=== PATIENT | male | born 1940 | race African-American/Black ===

== ENCOUNTER 2016-12-06 12:34 | Inpatient (IN) | payer MEDICARE, OTHER ==
[~2016-12-06] VITALS: Ht 182.9 cm; Wt 74.8 kg
[~2016-12-06 12:34] MED LIST: AMLODIPINE BESY10 MG ORAL; ASCORBIC ACID500 M4 ORAL; ASPIRIN EC81 MG ORAL; CARVEDILOL25 MG ORAL; CEPHALEXIN250 MG ORAL; DIOVAN160 MG ORAL; GLUCOSAMIN-CHO1 EAC1 PO; LIPITOR80 MG ORAL; LYSINE1000 MG PO; METFORMIN HCL500 M1 ORAL; MICROZIDE12.5 M1 PO; MULTI VITAMIN1 EACH ORAL; NEPHROVITE1 TAB ORAL; NORCO 5-325 TA1 EACH ORAL; PLAVIX75 MG ORAL; PROBIOTIC1 EAC5 PO; UBIQUINOL100 MG PO; VENLAFAXINE HC100 MG ORAL; VITAMIN D32000 UNI3 PO; VITAMIN E400 INTLU ORAL
[2016-12-06] MEDS ORDERED: Sodium Chloride 500ML 500 ML IV ONE (12:41)
--- NOTE | 2016-12-06 12:46 | Emergency Room Report ---
History of Present Illness General Chief Complaint: Altered Level of Consciousness Source: EMS Present Illness HPI Patient was brought in by paramedics for reports of increased confusion Patient is easily GCS 15 This report is given by paramedics Over the past several hours the patient has been less talkative does not appear to be his usual self and presents to the ER Patient himself Reports that he has been feeling weak and lethargic there was no reports of vomiting or diarrhea unknown regarding fever unknown regarding change in medications Denies any dysuria frequency denies any focal weakness Allergies: Coded Allergies: SHELLFISH DERIVED (Verified Allergy, Intermediate, Shortness of Breath, ) Patient History Past Medical History: see triage record Pertinent Family History: none Reviewed Nursing Documentation: PMH: Agreed, PSxH: Agreed Nursing Documentation-PMH Past Medical History: No History, Except For Hx Cardiac Problems: Yes - STENTS Hx Hypertension: Yes Hx Pacemaker: No Hx Asthma: Yes Hx COPD: Yes Hx Diabetes: Yes Hx Cancer: No Hx Gastrointestinal Problems: Yes Hx Neurological Problems: Yes Hx Cerebrovascular Accident: Yes Hx Seizures: No Review of Systems All Other Systems: negative except mentioned in HPI Physical Exam Vital Signs Date Time Temp Pulse Resp B/P (MAP) Pulse Ox O2 Delivery O2 Flow Rate FiO2 12/06/16 12:18 102.4 106 20 122/68 100 Room Air Sp02 EP Interpretation: reviewed, normal General Appearance: no apparent distress Head: normocephalic, atraumatic Eyes: bilateral eye PERRL, bilateral eye EOMI ENT: hearing grossly normal, normal pharynx Neck: full range of motion, supple Respiratory: lungs clear, normal breath sounds Cardiovascular #1: regular rate, rhythm, no edema Gastrointestinal: non tender, soft Musculoskeletal: other - Moves both upper extremities and lower extremities without focal deficit, appears somewhat slow to respond however Neurologic: normal inspection, alert, oriented x3, responsive Skin: normal color, no rash Lymphatic: no adenopathy Medical Decision Making Diagnostic Impression: Primary Impression: Sepsis Additional Impressions: Elevated troponin I level Hyponatremia UTI (urinary tract infection) ER Course Patient is a fairly complex patient with multiple differential to consideration including but not limited to cardiac cardiopulmonary and vascular emergencies Patient has become more awake and appropriate throughout his stay He now reports recent prostate procedure He also asked that his sodium was low Mentioning that he has had confusion with low sodium Patient was given normal saline for this and admitted for further care Labs Test 12/06/16 12:50 12/06/16 13:50 12/07/16 01:40 White Blood Count 6.4 K/UL (4.8-10.8) Red Blood Count 3.36 M/UL (4.70-6.10) Hemoglobin 11.0 G/DL (14.2-18.0) Hematocrit 33.4 % (42.0-52.0) Mean Corpuscular Volume 99 FL (80-99) Mean Corpuscular Hemoglobin 32.7 PG (27.0-31.0) Mean Corpuscular Hemoglobin Concent 32.9 G/DL (32.0-36.0) Red Cell Distribution Width 10.9 % (11.6-14.8) Platelet Count 162 K/UL (150-450) Mean Platelet Volume 7.2 FL (6.5-10.1) Neutrophils (%) (Auto) % (45.0-75.0) Lymphocytes (%) (Auto) % (20.0-45.0) Monocytes (%) (Auto) % (1.0-10.0) Eosinophils (%) (Auto) % (0.0-3.0) Basophils (%) (Auto) % (0.0-2.0) Differential Total Cells Counted 100 Neutrophils % (Manual) 91 % (45-75) Lymphocytes % (Manual) 2 % (20-45) Monocytes % (Manual) 1 % (1-10) Eosinophils % (Manual) 0 % (0-3) Basophils % (Manual) 0 % (0-2) Band Neutrophils 6 % (0-8) Platelet Estimate Adequate Platelet Morphology Normal Sodium Level 122 MMOL/L (136-145) Potassium Level 4.5 MMOL/L (3.5-5.1) Chloride Level 90 MMOL/L (98-107) Carbon Dioxide Level 23 MMOL/L (21-32) Anion Gap 9 mmol/L (5-15) Blood Urea Nitrogen 20 mg/dL (7-18) Creatinine 1.1 MG/DL (0.55-1.30) Estimat Glomerular Filtration Rate mL/min (>60) Glucose Level 224 MG/DL (74-106) Calcium Level 8.4 MG/DL (8.5-10.1) Total Bilirubin 0.9 MG/DL (0.2-1.0) Aspartate Amino Transf (AST/SGOT) 20 U/L (15-37) Alanine Aminotransferase (ALT/SGPT) 30 U/L (12-78) Alkaline Phosphatase 129 U/L (46-116) Total Creatine Kinase 72 U/L (26-308) Creatine Kinase MB < 0.5 NG/ML (0.0-3.6) Creatine Kinase MB Relative Index 0.6 Troponin I 0.072 ng/mL (0.000-0.056) Total Protein 7.3 G/DL (6.4-8.2) Albumin 3.4 G/DL (3.4-5.0) Globulin 3.9 g/dL Albumin/Globulin Ratio 0.9 (1.0-2.7) Lipase 106 U/L (73-393) Urine Color Red Urine Appearance Cloudy Urine pH 7 (4.5-8.0) Urine Specific [place] 1.010 (1.005-1.035) Urine Protein 3+ (NEGATIVE) Urine Glucose (UA) Negative (NEGATIVE) Urine Ketones Negative (NEGATIVE) Urine Occult Blood 5+ (NEGATIVE) Urine Nitrite Negative (NEGATIVE) Urine Bilirubin Negative (NEGATIVE) Urine Urobilinogen Normal MG/DL (0.0-1.0) Urine Leukocyte Esterase 3+ (NEGATIVE) Urine RBC Tntc /HPF (0 - 0) Urine WBC Tntc /HPF (0 - 0) Urine Squamous Epithelial Cells Occasional /LPF Urine Bacteria Many /HPF (NONE) Triglycerides Level 20 MG/DL (0-200) Cholesterol Level 81 MG/DL (< 200) LDL Cholesterol 25 mg/dL (<100) HDL Cholesterol 57 MG/DL (40-60) Cholesterol/HDL Ratio 1.4 (3.3-4.4) Rhythm Strip Diag. Results EP Interpretation: yes Rate: 88 Rhythm: NSR, no PVC's, no ectopy Chest X-Ray Diagnostic Results Chest X-Ray Diagnostic Results : Chest X-Ray Ordered: Yes # of Views/Limited/Complete: 1 View Indication: Chest Pain EP Interpretation: Yes Interpretation: no consolidation, no effusion, no pneumothorax Impression: No acute disease Electronically Signed by: Amanda Waldrop, DO CT/MRI/US Diagnostic Results CT/MRI/US Diagnostic Results : Impression CT head no acute disease Last Vital Signs Date Time Temp Pulse Resp B/P (MAP) Pulse Ox O2 Delivery O2 Flow Rate FiO2 12/06/16 12:18 102.4 106 20 122/68 100 Room Air Status: improved Disposition: ADMITTED INPATIENT Condition: Serious AMANDA WALDROP D.O. Dec 06, 2016 12:46
[2016-12-06 12:50] VITALS: BP 104/61
[2016-12-06 13:12] LABS: MEAN CORPUSCULAR HEMOGLOBIN 32.7 PG (27.0-31.0); MEAN CORPUSCULAR HGB CONC 32.9 G/DL (32.0-36.0); MEAN CORPUSCULAR VOLUME 99 FL (80-99); MEAN PLATELET VOLUME 7.2 FL (6.5-10.1); PLATELET COUNT 162 K/UL (150-450); RED BLOOD COUNT 3.36 M/UL (4.70-6.10); RED CELL DISTRIBUTION WIDTH 10.9 % (11.6-14.8); WHITE BLOOD COUNT 6.4 K/UL (4.8-10.8)
[2016-12-06 13:28] LABS: BAND NEUTROPHILS % (MANUAL) 6 % (0-8); BASOPHILS % (MANUAL) 0 % (0-2); EOSINOPHILS % (MANUAL) 0 % (0-3); LYMPHOCYTES % (MANUAL) 2 % (20-45); NEUTROPHILS % (MANUAL) 91 % (45-75); PLATELET ESTIMATE ADEQUATE; PLATELET MORPHOLOGY NORMAL; TOTAL CELLS COUNTED 100
--- NOTE | 2016-12-06 13:29 | Diagnostic Imaging Report ---
Indication: Altered mental status Technique: Contiguous 5 mm thick transaxial imaging of the head obtained in a Siemens Sensation [address] scanner. Soft tissue and bone windows generated. Total Dose length Product (DLP): [address] Dose Index Volume (CTDIvol): 70.38, 0.15 mGy Comparison: 07/01/14 Findings: There is mild prominence of the ventricles, basal cisterns, and cerebral sulci consistent with atrophy. Mild, nonspecific, white matter hypoattenuation is noted throughout the brain consistent with chronic small vessel disease. There is no midline shift, edema, acute hemorrhage, mass effect, or abnormal extra-axial fluid collections. Bones and extra osseous soft tissues are unremarkable. Impression: No acute intracranial bleed, mass effect or edema. Mild atrophy of the brain. Nonspecific white matter hypoattenuation probably due to chronic small vessel disease. The CT scanner at [facility] is accredited by the [employer] and the scans are performed using dose optimization techniques as appropriate to a performed exam including Automatic Exposure control.
[2016-12-06] MEDS ORDERED: LIPITOR80 MG ORAL (13:31)
[2016-12-06] MEDS ORDERED: AMLODIPINE BESY10 MG ORAL (13:32)
[2016-12-06 13:46] LABS: ALANINE AMINOTRANSFERASE 30 U/L (12-78); ALBUMIN/GLOBULIN RATIO 0.9 (1.0-2.7); ANION GAP 9 mmol/L (5-15); ASPARTATE AMINO TRANSFERASE 20 U/L (15-37); CALCIUM 8.4 MG/DL (8.5-10.1); CARBON DIOXIDE 23 MMOL/L (21-32); CHLORIDE 90 MMOL/L (98-107); CKMB < 0.5 NG/ML (0.0-3.6); CREATININE 1.1 MG/DL (0.55-1.30); LIPASE 106 U/L (73-393); POTASSIUM 4.5 MMOL/L (3.5-5.1); SODIUM 122 MMOL/L (136-145); TOTAL PROTEIN 7.3 G/DL (6.4-8.2)
[2016-12-06] MEDS ORDERED: cefTRIAXone 1 GM in NS 55 ML IVPB ONE (14:15)
[2016-12-06 14:19] LABS: APPEARANCE,URINE CLOUDY; KETONES,URINE NEGATIVE (NEGATIVE); LEUKOCYTE ESTERASE ,URINE 3+ (NEGATIVE); NITRITE,URINE NEGATIVE (NEGATIVE); PH,URINE 7 (4.5-8.0); PROTEIN,URINE 3+ (NEGATIVE); UROBILINOGEN,URINE NORMAL MG/DL (0.0-1.0)
--- NOTE | 2016-12-06 14:22 | Diagnostic Imaging Report ---
Indication: Dyspnea Comparison: 5:30 A single view chest radiograph was obtained. Findings: No definite infiltrate or pulmonary vascular congestion identified. Right hilar calcification noted. The heart is enlarged. The aorta is mildly enlarged consistent with atherosclerotic vascular disease. The bones are osteopenic. Impression: No acute disease
[2016-12-06 14:30] VITALS: BP 122/60
[2016-12-06 14:40] LABS: BACTERIA,URINE MANY /HPF; RBC,URINE TNTC /HPF (0 - 0); SQUAMOUS EPITHELIAL CELL,UR OCCASIONAL /LPF (NONE/OCC); WBC,URINE TNTC /HPF (0 - 0)
[2016-12-06] MEDS ORDERED: FLUTICASONE PRO16 G1 NASAL (15:12)
[2016-12-06] MEDS ORDERED: LEVITRA20 MG ORAL (15:12)
[2016-12-06] MEDS ORDERED: METHYLCOBALAMIN1 GM MC (15:12)
[2016-12-06] MEDS ORDERED: DOCUSATE SODIU100 MG ORAL (15:12)
[2016-12-06] MEDS ORDERED: CLOPIDOGREL75 MG ORAL (15:12)
[2016-12-06] MEDS ORDERED: DIAZEPAM5 MG ORAL (15:12)
[2016-12-06] MEDS ORDERED: FOLIC ACID1 MG ORAL (15:12)
[2016-12-06] MEDS ORDERED: COENZYME Q-1030 MG PO (15:12)
[2016-12-06] MEDS ORDERED: MAGNESIUM OXID500 M2 PO (15:12)
[2016-12-06] MEDS ORDERED: FLUZONE HI180 MCG/08 IM (15:12)
[2016-12-06 16:30] VITALS: BP 108/47
[2016-12-06] MEDS ORDERED: Docusate 100mg cap ORAL ONE (17:45)
[2016-12-06] MEDS: D5NS 1,000 ML IV SCH (18:47)
[2016-12-06] MEDS ORDERED: Miralax 17gm pkt ORAL PRN (19:15)
[2016-12-06] MEDS ORDERED: Norco 5mg/325mg tab ORAL PRN (19:15)
[2016-12-06] MEDS ORDERED: Nitroglycerin Subl 0.4mg tab SL PRN (19:15)
[2016-12-06 20:00] VITALS: BP 133/65
[2016-12-06 20:30] VITALS: BP 108/47
--- NOTE | 2016-12-06 20:45 | Consultation ---
DATE OF CONSULTATION: 12/06/2016 NEPHROLOGY CONSULTATION REFERRING PHYSICIAN: Clyde Nelson M.D. REASON FOR CONSULTATION: Hyponatremia, probable urinary tract infection. HISTORY OF PRESENT ILLNESS: The patient has a sodium of 122 today. He states he has had sort of chronic hyponatremia and has had this in the past, history is significant for BPH and prior prostatectomy in March 2014 and he had a recent procedure at [facility] with the radiofrequency prostatectomy last Monday and the Perez was removed on Monday which is 12/05/2016. He voided well in the doctor's office and was doing well. However this morning, he said he woke up and was somewhat disoriented and had a fever of 101. In the emergency room, he has pyuria. Troponin was 0.072. Sodium of 122. History is significant for coronary artery stenting apparently in March 2014. He also had hospitalization at [place] in June of 2014 from severe bleeding of the prostate while he was on Plavix. The patient has a history of hepatitis C and treatment with interferon in the past with apparently a poor tolerance and subsequently more recent treatment with two-drug regimen for hepatitis C. He has been on hydrochlorothiazide for a long time for hypertension as he has been told by his physician that this medication was essential to control his blood pressure. CURRENT MEDICATIONS: Listed on the computer include [place], cephalexin, amlodipine, ascorbic acid, atorvastatin Nephro-Sweta, carvedilol, metformin, valsartan, lysine, ubiquinol, hydrochlorothiazide, vitamin D3, glucosamine chondroitin, multivitamins, lactobacillus, , vitamin E, atorvastatin. ALLERGIES: To shellfish. HABITS: He is a cigarette smoker quit in 1979, alcohol quit in 1989, and he used some drugs . SOCIAL HISTORY: He worked in management and academic psychology. SYSTEM REVIEW: HEENT: Vision and hearing is good. ENDOCRINE: History of adult onset diabetes. No known thyroid disease. PULMONARY: No asthma, TB, or chronic cough. CARDIAC: History of prior stenting. No recent angina. No arrhythmias or congestive heart failure. GASTROINTESTINAL: No definite ulcers or GI bleeding. GENITOURINARY: History of some incomplete bladder emptying and prostatectomy as above. NEUROLOGIC: History of altered mental status related to hyponatremia in the past. PSYCHIATRIC: History of depression. PHYSICAL EXAMINATION: GENERAL: The patient is alert and oriented man, lying in the emergency room in no acute distress. VITAL SIGNS: His temperature was 102.4, has fallen to 98.3, pulse 86, respirations 22, blood pressure 108/47. HEENT: Sclerae are nonicteric. Ocular motions intact in all directions. Oral mucosa moist. NECK: No adenopathy. LUNGS: Clear. HEART: Regular rhythm. No murmur. ABDOMEN: Soft without organomegaly or masses. EXTREMITIES: No edema, cyanosis, or clubbing. NEUROLOGIC: He is alert and oriented. No focal findings. IMPRESSION: The patient has hyponatremia most likely secondary to hydrochlorothiazide and free water intake, less likely it is a contribution of liver disease from hepatitis C or syndrome of inappropriate antidiuretic hormone secretion alone. He also has fever, chills, and pyuria and likely iatrogenic urinary tract infection. PLAN: The patient be put on broad-spectrum antibiotics for his urinary tract infection. Hydrochlorothiazide will be stopped and we will give him some 3% saline and hopefully his sodium will correct. His mental status is already better. Other agents can be used for his hypertension and this can be monitored closely. Kevin Olivo M.D. DR: Seda JOB#: [id number] CC:
[2016-12-06] MEDS ORDERED: NaCl 3% 500ml 250 ML IV ONE (21:00)
[2016-12-06] MEDS: Docusate 100mg cap ORAL SCH (21:08)
[2016-12-06] MEDS: Atorvastatin 80mg tab ORAL SCH (21:08)
[2016-12-06] MEDS: Carvedilol 25mg Tab ORAL SCH (21:09)
[2016-12-06] MEDS: Heparin 5000 units/ml inj SUBQ SCH (21:12)
[2016-12-06] MEDS: Zosyn 3.375gm/50ml Premix 50 ML IVPB SCH (23:00)
[2016-12-07] VITALS: BP 120/55
[2016-12-07 02:27] LABS: CHOLESTEROL 81 MG/DL (< 200); CHOLESTEROL/HDL RATIO 1.4 (3.3-4.4)
[2016-12-07 04:00] VITALS: BP 106/53
[2016-12-07] MEDS: D5NS 1,000 ML IV SCH ×2 (05:12→15:00)
[2016-12-07] MEDS: Zosyn 3.375gm/50ml Premix 50 ML IVPB SCH ×3 (05:13→22:40)
[2016-12-07 08:00] VITALS: BP 118/85
[2016-12-07] MEDS: Losartan 50mg tab ORAL SCH (09:00)
[2016-12-07] MEDS: Carvedilol 25mg Tab ORAL SCH ×2 (09:00→21:13)
[2016-12-07] MEDS ORDERED: Venlafaxine XR 150mg cap ORAL SCH (09:00)
[2016-12-07] MEDS: Flonase Nasal Inhaler 16gm NASAL SCH (11:13)
[2016-12-07] MEDS: metFORMIN 500mg tab ORAL SCH ×2 (11:14→18:07)
[2016-12-07] MEDS: Ascorbic Acid 500mg tab ORAL SCH (11:14)
[2016-12-07] MEDS: Docusate 100mg cap ORAL SCH ×2 (11:14→21:12)
[2016-12-07] MEDS: Heparin 5000 units/ml inj SUBQ SCH ×2 (11:16→21:16)
[2016-12-07 12:00] VITALS: BP 139/55
[2016-12-07] MEDS ORDERED: cefTRIAXone 1gm/D5W 55ml IVPB SCH ×2 (14:00)
[2016-12-07] MEDS: Venlafaxine XR 75mg cap ORAL SCH (14:10)
--- NOTE | 2016-12-07 14:27 | Nephrology Progress Note ---
Assessment/Plan Problem List: (1) Pyelonephritis (2) Hypotension (3) Hyponatremia (4) BPH (benign prostatic hypertrophy) with urinary retention (5) CAD (coronary artery disease) (6) Encephalopathy Plan avoid hctz, update lab, kitty Subjective Constitutional: Reports: weakness HEENT: Reports: no symptoms Genitourinary: Reports: frequency Neurologic/Psychiatric: Reports: no symptoms Objective Objective Last 24 Hour Vital Signs Date Time Temp Pulse Resp B/P (MAP) Pulse Ox O2 Delivery O2 Flow Rate FiO2 12/07/16 09:00 106/53 12/07/16 09:00 82 106/53 12/07/16 09:00 82 106/53 12/07/16 08:00 97.5 72 20 118/85 100 Room Air 12/07/16 08:00 87 12/07/16 04:00 82 12/07/16 04:00 100.9 86 20 106/53 94 Room Air 12/07/16 02:21 100.4 12/07/16 00:00 101.8 94 20 120/55 96 Room Air 12/06/16 21:09 88 133/65 12/06/16 20:30 98.3 86 19 108/47 99 Room Air 89 12/06/16 20:28 89 19 108/47 99 Room Air 12/06/16 20:00 97.9 89 20 133/65 95 Room Air 12/06/16 16:30 86 22 108/47 98 Room Air 12/06/16 14:30 90 24 122/60 97 Room Air Laboratory Tests 12/07/16 01:40: Triglycerides Level 20, Cholesterol Level 81, LDL Cholesterol 25, HDL Cholesterol 57, Cholesterol/HDL Ratio 1.4L Height (Feet): 6 Height (Inches): 0.00 Weight (Pounds): 165 General Appearance: no apparent distress, alert EENT: normal ENT inspection Neck: non-tender, normal alignment Cardiovascular: normal rate Respiratory/Chest: lungs clear, normal breath sounds Abdomen: soft, no organomegaly Extremities: other - no edema 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
[2016-12-07 15:01] LABS: MEAN CORPUSCULAR HEMOGLOBIN 34.2 PG (27.0-31.0); MEAN CORPUSCULAR HGB CONC 33.3 G/DL (32.0-36.0); MEAN CORPUSCULAR VOLUME 103 FL (80-99); PLATELET COUNT 154 K/UL (150-450); RED BLOOD COUNT 3.32 M/UL (4.70-6.10); WHITE BLOOD COUNT 9.6 K/UL (4.8-10.8)
--- NOTE | 2016-12-07 15:16 | Cardiology Report ---
APPROVED REPORT EKG Measurement Heart [id number] Normal sinus rhythm Normal ECG
[2016-12-07 15:33] LABS: ALANINE AMINOTRANSFERASE 34 U/L (12-78); ALBUMIN/GLOBULIN RATIO 0.8 (1.0-2.7); ANION GAP 8 mmol/L (5-15); ASPARTATE AMINO TRANSFERASE 28 U/L (15-37); CALCIUM 8.5 MG/DL (8.5-10.1); CARBON DIOXIDE 24 MMOL/L (21-32); CHLORIDE 97 MMOL/L (98-107); POTASSIUM 4.2 MMOL/L (3.5-5.1); SODIUM 129 MMOL/L (136-145); THYROID STIMULATING HORMONE 1.062 uiU/mL (0.360-3.740); TOTAL PROTEIN 7.4 G/DL (6.4-8.2)
[2016-12-07 16:00] VITALS: BP 101/51
--- NOTE | 2016-12-07 16:34 | History & Physical ---
History and Physical History & Physicial HISTORY OF PRESENT ILLNESS: This 76-year-old man came to the hospital because of fever and chills with some confusion. He was found to have a UTI and low Na and admission was arranged. He reports past problems with low Na and is taking HCTZ. He had a recent laser TURP. PAST MEDICAL HISTORY: He has had 2 stents in the LAD at [facility]. He had a small stroke with little residual. He has hypertension and prostatic hypertrophy. He has had several prostate biopsies because his PSA was elevated as high as 25 or so, but the biopsies were negative. He had hepatitis C treated recently and cured. He has hyperlipidemia. He is diabetic, controlled on diet and oral medication. Depression is controlled. ALLERGIES: Shellfish. MEDICATIONS: reviewed REVIEW OF SYSTEMS: Otherwise unremarkable. PHYSICAL EXAMINATION: GENERAL: The patient is alert, responds appropriately, very pleasant gentleman. VITAL SIGNS: Blood pressure is 130/66. The other vital signs are normal. He has no fever. HEAD: Normocephalic. NECK: Has no jugular venous distention. Carotids are 2+. CHEST: Clear. CARDIOVASCULAR: Cardiac rhythm is regular without murmur or gallop. ABDOMEN: Soft and slightly distended. It seems there may be a fluid wave. The liver and spleen are not palpable. There is no mass. GENITALIA: Has a Perez catheter draining pink to red urine. EXTREMITIES: Have no edema. There is no clubbing or cyanosis and no signs of phlebitis. IMPRESSION: 1. UTI, s/p laser TURP 2. Hyponatremia 3. DM. 4. Hypertension. 5. Coronary artery disease status post angioplasty and stent x2 in the LAD. 6. Hyperlipidemia. 7. Status post treatment for hepatitis C. 8. Benign prostatic hypertrophy with elevated PSA. PLAN: The patient has been seen by nephrology. Hypertonic saline was given. Antibiotics were given. DC home when afebrile. GORDON SCALES Dec 07, 2016 16:34
[2016-12-07 17:28] LABS: BAND NEUTROPHILS % (MANUAL) 2 % (0-8); LYMPHOCYTES % (MANUAL) 7 % (20-45); NEUTROPHILS % (MANUAL) 88 % (45-75); TOTAL CELLS COUNTED 100
[2016-12-07 17:29] LABS: ANISOCYTOSIS 1+; BASOPHILS % (MANUAL) 0 % (0-2); EOSINOPHILS % (MANUAL) 0 % (0-3); HYPOCHROMASIA 1+; PLATELET ESTIMATE ADEQUATE; PLATELET MORPHOLOGY NORMAL
[2016-12-07 20:00] VITALS: BP 151/67
[2016-12-07] MEDS: Atorvastatin 80mg tab ORAL SCH (21:12)
[2016-12-07] MEDS ORDERED: NovoLOG Insulin Flexpen SUBQ ONE (23:00)
[2016-12-08] VITALS: BP_SYST 127; BP_SYST 54; BP_DIAS 54
[2016-12-08 04:00] VITALS: BP 117/58
[2016-12-08] MEDS: Zosyn 3.375gm/50ml Premix 50 ML IVPB SCH ×2 (05:42→14:01)
[2016-12-08 07:58] LABS: BASOPHILS % (AUTO) 0.4 % (0.0-2.0); EOSINOPHILS % (AUTO) 1.2 % (0.0-3.0); LYMPHOCYTES % (AUTO) 11.4 % (20.0-45.0); MEAN CORPUSCULAR HEMOGLOBIN 34.4 PG (27.0-31.0); MEAN CORPUSCULAR HGB CONC 33.9 G/DL (32.0-36.0); MEAN CORPUSCULAR VOLUME 101 FL (80-99); MEAN PLATELET VOLUME 7.9 FL (6.5-10.1); MONOCYTES % (AUTO) 11.2 % (1.0-10.0); NEUTROPHILS % (AUTO) 75.8 % (45.0-75.0); PLATELET COUNT 134 K/UL (150-450); RED BLOOD COUNT 3.05 M/UL (4.70-6.10); RED CELL DISTRIBUTION WIDTH 10.8 % (11.6-14.8); WHITE BLOOD COUNT 8.6 K/UL (4.8-10.8)
[2016-12-08 08:00] VITALS: BP 135/64
[2016-12-08 08:34] LABS: ALANINE AMINOTRANSFERASE 29 U/L (12-78); ALBUMIN/GLOBULIN RATIO 0.7 (1.0-2.7); ANION GAP 8 mmol/L (5-15); ASPARTATE AMINO TRANSFERASE 22 U/L (15-37); CALCIUM 8.6 MG/DL (8.5-10.1); CARBON DIOXIDE 25 MMOL/L (21-32); CHLORIDE 99 MMOL/L (98-107); CREATININE 0.8 MG/DL (0.55-1.30); POTASSIUM 4.1 MMOL/L (3.5-5.1); SODIUM 131 MMOL/L (136-145); THYROID STIMULATING HORMONE 1.089 uiU/mL (0.360-3.740); TOTAL PROTEIN 6.8 G/DL (6.4-8.2)
[2016-12-08] MEDS: metFORMIN 500mg tab ORAL SCH (09:55)
[2016-12-08] MEDS: Docusate 100mg cap ORAL SCH (09:55)
[2016-12-08] MEDS: Losartan 50mg tab ORAL SCH (09:56)
[2016-12-08] MEDS: Ascorbic Acid 500mg tab ORAL SCH (09:56)
[2016-12-08 09:57] VITALS: BP 135/64
[2016-12-08] MEDS: Carvedilol 25mg Tab ORAL SCH (09:57)
[2016-12-08] MEDS: Venlafaxine XR 75mg cap ORAL SCH (09:58)
[2016-12-08] MEDS: Flonase Nasal Inhaler 16gm NASAL SCH (10:06)
[2016-12-08] MEDS ORDERED: Heparin 5000 units/ml inj SUBQ SCH ×2 (10:45→21:00)
[2016-12-08] MEDS ORDERED: Aspirin Baby 81mg ORAL SCH (12:00)
[2016-12-08] MEDS ORDERED: Aspirin Baby 81mg NG SCH (12:00)
--- NOTE | 2016-12-08 14:57 | Nephrology Progress Note ---
Assessment/Plan Problem List: (1) Pyelonephritis (2) Hypotension (3) Hyponatremia (4) BPH (benign prostatic hypertrophy) with urinary retention (5) CAD (coronary artery disease) (6) Encephalopathy (7) Hyperglycemia Plan avoid hctz, update lab, zosyn changed to cefzolin, oral agents for aodm + SS insulin Subjective Constitutional: Reports: no symptoms HEENT: Reports: no symptoms Genitourinary: Reports: no symptoms Neurologic/Psychiatric: Reports: no symptoms Objective Objective Last 24 Hour Vital Signs Date Time Temp Pulse Resp B/P (MAP) Pulse Ox O2 Delivery O2 Flow Rate FiO2 12/08/16 09:57 73 135/64 12/08/16 09:56 135/64 12/08/16 08:00 98.1 73 19 135/64 97 Room Air 12/08/16 08:00 77 12/08/16 04:00 79 12/08/16 04:00 97.9 73 20 117/58 96 Room Air 12/08/16 00:00 81 12/08/16 00:00 98.2 80 22 127/54 94 Room Air 12/07/16 21:13 82 151/67 12/07/16 20:00 99.5 89 20 151/67 96 Room Air 89 12/07/16 20:00 90 12/07/16 16:00 88 12/07/16 16:00 97.5 83 20 101/51 96 Room Air Intake and Output 12/08/16 12/09/16 19:00 07:00 Intake Total 400 ml Balance 400 ml Intake Oral 400 ml # Voids 1 # Bowel Movements 1 Laboratory Tests 12/08/16 06:30: White Blood Count 8.6, Red Blood Count 3.05L, Hemoglobin 10.5L, Hematocrit 30.9L , Mean Corpuscular Volume 101H, Mean Corpuscular Hemoglobin 34.4H, Mean Corpuscular Hemoglobin Concent 33.9, Red Cell Distribution Width 10.8L, Platelet Count 134L, Mean Platelet Volume 7.9, Neutrophils (%) (Auto) 75.8H, Lymphocytes (%) (Auto) 11.4L, Monocytes (%) (Auto) 11.2H, Eosinophils (%) (Auto ) 1.2, Basophils (%) (Auto) 0.4, Sodium Level 131L, Potassium Level 4.1, Chloride Level 99, Carbon Dioxide Level 25, Anion Gap 8, Blood Urea Nitrogen 10 , Creatinine 0.8, Estimat Glomerular Filtration Rate , Glucose Level 193#H, Calcium Level 8.6, Total Bilirubin 0.9, Aspartate Amino Transf (AST/SGOT) 22, Alanine Aminotransferase (ALT/SGPT) 29, Alkaline Phosphatase 101, Total Protein 6.8, Albumin 2.8L, Globulin 4.0, Albumin/Globulin Ratio 0.7L, Thyroid Stimulating Hormone (TSH) 1.089 Height (Feet): 6 Height (Inches): 0.00 Weight (Pounds): 165 General Appearance: no apparent distress, alert EENT: normal ENT inspection Neck: non-tender Cardiovascular: normal rate Respiratory/Chest: lungs clear Abdomen: non tender, soft Extremities: non-tender Neurologic: crt II-XII grossly normal IKER TUBBS Dec 08, 2016 14:57
[2016-12-08] MEDS ORDERED: HYDRALAZINE HCL25 M1 ORAL (16:08)
[2016-12-08] MEDS ORDERED: CEPHALEXIN500 M1 ORAL (16:08)
[2016-12-08] MEDS ORDERED: GlipiZIDE 10mg tab ORAL SCH (16:30)
[2016-12-08] MEDS ORDERED: NovoLOG Insulin Flexpen SUBQ SCH (16:30)
--- NOTE | 2016-12-08 16:36 | Discharge Summary ---
Discharge Summary Hospital Course Date of Admission Dec 06, 2016 at 13:50 Date of Discharge 12/08/16 Admitting Diagnosis encephalopathy Reason for Hospitalization: UTI HPI Alexey Kruger is a 76 year old male who was admitted on Dec 06, 2016 at 13:50 for Encephalopathy Consultations renal Procedures no Hospital Course low Na better at dc with 3% saline UTI improved w abx dc home on abx, off HCTZ Discharge Medications New Medications: Cephalexin* (Cephalexin*) 500 Mg Tablet 500 MG ORAL EVERY 6 HOURS, #28 CAP Hydralazine Hcl* (Hydralazine Hcl*) 25 Mg Tablet 25 MG ORAL BID, #60 TAB 0 Refills Continued Medications: Amlodipine Besylate* (Amlodipine Besylate*) 10 Mg Tablet 10 MG ORAL DAILY, TAB Ascorbic Acid* (Ascorbic Acid*) 500 Mg Tablet 500 MG ORAL DAILY, #30 TAB 0 Refills Atorvastatin (Lipitor) 80 Mg Tab 80 MG ORAL BEDTIME, #30 TAB 0 Refills Carvedilol* (Carvedilol*) 25 Mg Tablet 25 MG ORAL EVERY 12 HOURS, TAB Cholecalciferol (Vitamin D3) (Vitamin D3) 2,000 Unit Tablet 2000 UNIT PO DAILY, TAB Clopidogrel* (Clopidogrel*) 75 Mg Tablet 75 MG ORAL DAILY, TAB Diazepam* (Diazepam*) 5 Mg Tablet 5 MG ORAL HS PRN for Insomnia, #30 TAB 0 Refills Docusate Sodium* (Docusate Sodium*) 100 Mg Capsule 100 MG ORAL DAILY, CAP Fluticasone Propionate* (Fluticasone Propionate*) 16 Gm [place].susp 1 SPRAY NASAL DAILY, EA Folic Acid* (Folic Acid*) 1 Mg Tablet 1 MG ORAL DAILY, TAB Hydrocodone Bit/Acetaminophen 5-325* ([place] 5-325*) 1 Tab Tab 1 TAB ORAL Q4H PRN for Moderate Pain (Pain Scale 4-6), #30 TAB Lysine (Lysine) 1,000 Mg Tablet 1000 MG PO BID, TAB Metformin Hcl* (Metformin Hcl*) 500 Mg Tablet 500 MG ORAL TWICE A DAY, TAB Multivitamin (Multi Vitamin Daily) 1 Each Tablet 1 TAB ORAL 2XW, #30 TAB 0 Refills Valsartan (Diovan) 160 Mg Tab 160 MG ORAL BID, TAB Vardenafil Hcl (Levitra) 20 Mg Tablet 20 MG ORAL, #30 TAB 0 Refills 60 minutes prior to sexual activity To be given as one single dose and not given more than once daily Venlafaxine Hcl (Venlafaxine Hcl) 100 Mg Tablet 150 MG ORAL DAILY, TAB Vitamin E (Vitamin E) 400 Intlu Cap 400 INTLU ORAL DAILY, CAP Discontinued Medications: Hydrochlorothiazide (Microzide) 12.5 Mg Capsule 12.5 MG PO DAILY, CAP Discharge Condition Upon Discharge: improving Discharge Disposition Patient was discharged to home Discharge Diagnoses: (1) Diabetes mellitus type 2 in nonobese (2) Prostatitis, acute (3) Hyponatremia (4) Sepsis (5) UTI (urinary tract infection) (6) Encephalopathy (7) Hyperglycemia GORDON SCALES Dec 08, 2016 16:36
[2016-12-08] MEDS ORDERED: D5NS 1000ml IV ONE (17:59)
[2016-12-08] MEDS ORDERED: Tubing IV Secondary IV ONE (17:59)
[2016-12-08] MEDS ORDERED: NS 275ml ONE (17:59)
[2016-12-08] MEDS ORDERED: metFORMIN 500mg tab ORAL SCH (18:00)
[2016-12-08] MEDS ORDERED: ceFAZolin 1gm/50ml Premix 50 ML IV SCH (22:00)
[2016-12-08] MEDS ORDERED: ceFAZolin 1gm in D5W 55ml IVP SCH (22:00)
== END 2016-12-08 18:00 | disposition home or self-care (01) | DRG 689 ==
LOC: EDBD 12:34 → EMR 13:21 → 2E 13:50 → EDBEDREQ 13:56 → EDBEDREQSVC 13:56 → EDBEDREQ 18:15
DX: N39.0 Urinary tract infection, site not specified (principal); G93.40 Encephalopathy, unspecified; I95.9 Hypotension, unspecified; E87.1 Hypo-osmolality and hyponatremia; E11.9 Type 2 diabetes mellitus without complications; N40.1 Benign prostatic hyperplasia with lower urinary tract symptoms; R33.8 Other retention of urine; N41.9 Inflammatory disease of prostate, unspecified; R97.20 Elevated prostate specific antigen [PSA]; I25.10 Atherosclerotic heart disease of native coronary artery without angina pectoris; E78.5 Hyperlipidemia, unspecified; I10 Essential (primary) hypertension; B19.20 Unspecified viral hepatitis C without hepatic coma; Z87.891 Personal history of nicotine dependence; Z95.5 Presence of coronary angioplasty implant and graft; T50.2X5A Adverse effect of carbonic-anhydrase inhibitors, benzothiadiazides and other diuretics, initial encounter; Y92.89 Other specified places as the place of occurrence of the external cause
CPT/HCPCS: 36415; 70450; 71010; 80053; 80061; 81003; 82550; 82553; 82962; 83690; 84443; 84484; 85007; 85025; 87040; 87086; 87181; 93005; 99285; J1815